=== PATIENT | male | born 1980 | race Caucasian/White ===

== ENCOUNTER 2016-07-14 10:07 | Emergency (ER) | payer OTHER ==
[2016-07-14 10:19] VITALS: BP 146/99
[2016-07-14] MEDS ORDERED: Clindamycin CAP* 150 MG PO ONE ×2 (12:21→12:22)
[2016-07-14] MEDS ORDERED: oxyCODONE/Acetamin 5/325 MG* TAB PO ONE (12:22)
--- NOTE | 2016-07-14 12:23 | ED ---
Throat Pain/Nasal Congestion - HPI Summary HPI Summary: 35M presents with dental pain for a week. States that he fracture his upper front tooth a week ago and since yesterday has noticed inc pain. He denies any fever, pain with eye movement, or swelling around eye. He has been taking ibuprofen and Tylenol for pain without relief. He denies anything draining. - History of Current Complaint Chief Complaint: EDGeneral Time Seen by Provider: 07/14/16 11:07 - Allergies/Home Medications Allergies/Adverse Reactions: Allergies Allergy/AdvReac Type Severity Reaction Status Date / Time No Known Allergies Allergy Verified 07/14/16 12:27 PMH/Surg Hx/FS Hx/Imm Hx Endocrine/Hematology History: Denies: Hx Anticoagulant Therapy Cardiovascular History: Denies: Hx Hypertension Infectious Disease History: Denies: Traveled Outside the [place] in Last 30 Days - Family History Known Family History: Positive: Cardiac Disease - Social History Alcohol Use: Occasionally Substance Use Type: Reports: None Smoking Status (MU): Former Smoker Review of Systems Negative: Fever Positive: Dental Pain Negative: Chest Pain Negative: Shortness Of Breath All Other Systems Reviewed And Are Negative: Yes Physical Exam Triage Information Reviewed: Yes Vital Signs On Initial Exam: Initial Vitals Temp Pulse BP Pulse Ox 97.7 F 98 146/99 99 07/14/16 10:16 07/14/16 10:16 07/14/16 10:16 07/14/16 10:16 Vital Signs Reviewed: Yes Appearance: Positive: Pain Distress Skin: Positive: Warm, Dry Head/Face: Positive: Normal Head/Face Inspection Eyes: Positive: Normal, EOMI, SAMARA, Conjunctiva Clear ENT: Positive: Normal ENT inspection, Pharynx normal, TMs normal Dental: Positive: Percussion Tenderness @ - 9, Gross Decay/Caries @ - all teeth , Dental Fracture @ - 9 Neck: Positive: Supple, Nontender, No Lymphadenopathy Respiratory/Lung Sounds: Positive: Clear to Auscultation, Breath Sounds Present Cardiovascular: Positive: Normal, RRR Diagnostics - Vital Signs Vital Signs Temp Pulse BP Pulse Ox 07/14/16 10:16 97.7 F 98 146/99 99 - Laboratory Lab Statement: Any lab studies that have been ordered have been reviewed, and results considered in the medical decision making process. EENT Course/Dx - Course Course Of Treatment: 35M presents with dental pain for a week from fracture tooth that inc with pain yesterday. pain radiates to ear. denies any fever, swelling around eye. gums red but no drainable abscess present. will treat with clindamycin and percocet. patient understands and agrees with plan - Differential Diagnoses Differential Diagnoses: Dental Abscess, Dental Caries, Fractured Tooth - Diagnoses Provider Diagnoses: Dental abscess Discharge - Discharge Plan Condition: Good Disposition: HOME Prescriptions: Clindamycin CAP* [Cleocin 150 MG CAP*] 450 mg PO TID #84 cap oxyCODONE/Acetamin 5/325 MG* [Percocet 5/325 TAB*] 1 tab PO Q6H PRN #16 tab MDD 4 PRN Reason: Pain Patient Education Materials: Dental Abscess (ED) Referrals: Jayna PALENCIA VENEER GLUER,Ria [Primary Care Provider] - Additional Instructions: Take antibiotics: 3 tablets three times a day for 10 days Use ibuprofen every 6 hours, use narcotic for break through pain Avoid hard, crunchy food until seen by dentist Return to ED if develop fever, shortness of breath, pain with eye movement or swelling around eye Establish care with dentist as soon as possible and follow up Images - Images Dental: 1 - fracture
== END 2016-07-14 12:52 | disposition home or self-care (01) ==
LOC: ED 10:07
DX: K04.7 Periapical abscess without sinus (principal); S02.5XXA Fracture of tooth (traumatic), initial encounter for closed fracture; X58.XXXA Exposure to other specified factors, initial encounter; Y92.9 Unspecified place or not applicable; Z87.891 Personal history of nicotine dependence
CPT/HCPCS: 99282; A9270-GY

== ENCOUNTER 2017-07-14 12:14 | Emergency (ER) | payer OTHER ==
--- NOTE | 2017-07-14 14:04 | RAD ---
INDICATION: Right shoulder pain COMPARISON: None TECHNIQUE: AP, lateral, and oblique views were obtained. FINDINGS: The bony structures, joint spaces, and soft tissues are normal for age. IMPRESSION: NEGATIVE EXAMINATION.
--- NOTE | 2017-07-14 14:43 | ED ---
Upper Extremity Pain - HPI Summary HPI Summary: Patient is a 36-year-old male who presents emergency department for right shoulder pain 2 weeks. Patient does not recall any specific injury but states he does a lot of overhead lifting at work and this is one pain seemed to start. Pt. works at a tire shop and lifts tires daily. Symptoms are mild in severity. He describes pain as a burning sensation. Moving and lifting shoulder makes symptoms worse. Rest makes symptoms better. He has not tried taking any over- the-counter analgesics for pain. Symptoms are mild in severity. Denies numbness, tingling or weakness. - History of Current Complaint Chief Complaint: EDExtremityUpper Stated Complaint: RT SHOULDER INJURY Time Seen by Provider: 07/14/17 12:25 Hx Obtained From: Patient - Allergies/Home Medications Allergies/Adverse Reactions: Allergies Allergy/AdvReac Type Severity Reaction Status Date / Time No Known Allergies Allergy Verified 07/14/16 12:27 PMH/Surg Hx/FS Hx/Imm Hx Previously Healthy: Yes Endocrine/Hematology History: Denies: Hx Anticoagulant Therapy Cardiovascular History: Denies: Hx Hypertension - Immunization History Immunizations Up to Date: Yes Infectious Disease History: No Infectious Disease History: Denies: Traveled Outside the [place] in Last 30 Days - Family History Known Family History: Positive: Cardiac Disease - Social History Occupation: Employed Full-time Lives: With Family Alcohol Use: Occasionally Substance Use Type: Reports: None Smoking Status (MU): Heavy Every Day Tobacco Smoker Review of Systems Positive: Other - Shoulder pain Negative: Weakness, Paresthesia, Numbness All Other Systems Reviewed And Are Negative: Yes Physical Exam Triage Information Reviewed: Yes Vital Signs On Initial Exam: Initial Vitals Temp Pulse Resp BP Pulse Ox 97.0 F 79 16 146/98 97 07/14/17 12:17 07/14/17 12:17 07/14/17 12:17 07/14/17 12:17 07/14/17 12:17 Vital Signs Reviewed: Yes Appearance: Positive: Well-Appearing - Pt. sitting on bed in NAD. Head/Face: Positive: Normal Head/Face Inspection Eyes: Positive: Normal Neck: Positive: Supple, Nontender Musculoskeletal: Positive: Other - Pain on palpation to the posterior right shoulder. Pain with rotation of shoulder. No edema or erythema. 5/5 strength. Good palpable radial pulse. Neurological: Positive: Normal, CN Intact II-III Psychiatric: Positive: Affect/Mood Appropriate Diagnostics - Vital Signs Vital Signs Temp Pulse Resp BP Pulse Ox 07/14/17 12:17 97.0 F 79 16 146/98 97 - Laboratory Lab Statement: Any lab studies that have been ordered have been reviewed, and results considered in the medical decision making process. Course/Dx - Course Course Of Treatment: Xray negative for acute findings, reading per radiology. Suspect bursitis. Naproxen prescribed. Advised to rest arm, ice. Close follow -up with family doctor. Patient understands and agrees with plan. - Diagnoses Differential Diagnosis/HQI/PQRI: Positive: Arthritis, Contusion, Fracture ( Closed), Strain, Sprain Provider Diagnoses: Bursitis, Shoulder pain Discharge - Sign-Out/Discharge Documenting (check all that apply): Discharge/Admit/Transfer - Discharge Plan Condition: Good Disposition: HOME Prescriptions: Naproxen [Naproxen 500 mg tab] 500 mg PO Q12HR #20 tablet Patient Education Materials: Shoulder Bursitis (ED) Forms: *Work Release Referrals: Ria Lynn RN [Nurse Practitioner] - Storm Paulino MD [Medical Doctor] - Additional Instructions: Schedule an appointment with orthopedics or PCP if pain persist Naproxen as directed Ice and rest Avoid over use - Billing Disposition and Condition Condition: GOOD Disposition: HOME
[2017-07-14 15:06] VITALS: BP 142/86
== END 2017-07-14 15:03 | disposition home or self-care (01) ==
LOC: ED 12:14
DX: M75.51 Bursitis of right shoulder (principal); M25.511 Pain in right shoulder; Z72.0 Tobacco use
CPT/HCPCS: 99282